=== PATIENT | female | born 1940 | race Caucasian/White ===

== ENCOUNTER → 2021-04-17 10:50 | Outpatient (BNVA) | payer OTHER, MEDICARE, SELFPAY | PROVIDERS: Visit Provider Family Medicine | DX: I10 Essential (primary) hypertension (principal); E03.9 Hypothyroidism, unspecified | CPT/HCPCS: 80053; 80061; 82043; 84443; 85025 ==

== ENCOUNTER 2021-05-22 11:01 | Outpatient (CLI) | payer MEDICARE, SELFPAY ==
--- NOTE | 2021-05-22 11:31 | MM_ITS ---
WS: [id number] BILATERAL SCREENING 3D TOMOSYNTHESIS DIGITAL MAMMOGRAM WITH CAD HISTORY: SCREENING COMPARISON: 09/10/2019 and 05/25/2017 Bilateral CC and MLO views submitted. Computer aided detection analyzed. Breast composition: There are scattered areas of fibroglandular density. No suspicious masses, microc alcifications or architectural distortion. MM/[place] [id number] IMPRESSION: BI-RADS: 1-Negative FOLLOW UP: 1 Year Follow-up
== END 2021-05-22 11:02 | disposition home or self-care (01) ==
LOC: RAD 11:12
PROVIDERS: PCP Family Medicine; Visit Provider Family Medicine
DX: Z12.31 Encounter for screening mammogram for malignant neoplasm of breast (principal)
CPT/HCPCS: 77063; 77067

== ENCOUNTER → 2022-07-01 13:56 | Outpatient (BNVA) | payer MEDICARE, SELFPAY | PROVIDERS: PCP Family Medicine; Visit Provider Dermatology | DX: L57.0 Actinic keratosis (principal); L82.0 Inflamed seborrheic keratosis; L82.1 Other seborrheic keratosis; L72.0 Epidermal cyst; D36.14 Benign neoplasm of peripheral nerves and autonomic nervous system of thorax; L81.4 Other melanin hyperpigmentation; D22.39 Melanocytic nevi of other parts of face | CPT/HCPCS: 17000; 17003; 17110; 99213 ==

== ENCOUNTER → 2023-06-29 12:52 | Outpatient (BNVA) | payer MEDICARE, SELFPAY | PROVIDERS: PCP Family Medicine; Visit Provider Nurse Practitioner Family | DX: D48.5 Neoplasm of uncertain behavior of skin (principal); L82.0 Inflamed seborrheic keratosis; L72.0 Epidermal cyst; L81.4 Other melanin hyperpigmentation; D22.39 Melanocytic nevi of other parts of face; L82.1 Other seborrheic keratosis; Z85.828 Personal history of other malignant neoplasm of skin | CPT/HCPCS: 11102; 17110; 99213 ==

== ENCOUNTER 2024-04-18 09:10 | Outpatient (CLI) | payer MEDICARE, SELFPAY ==
--- NOTE | 2024-04-18 09:15 | USCV_ITS ---
Lisy Pichardo Age: 83 Gender: F : 1940 Exam Date: 04/18/2024 10:23 Ordering Phys: Wolf Bennett DO Technologist: R Exam Location: [facility] [place] Indication: SYNCOPE Risk Factors: Previous Vascular Surgery: Right Brachial BP: / Left Brachial BP: / Right Left Velocity (cm/s) Spectral Plaque Velocity (cm/s) Spectral Plaque Syst/Diast Broadening Syst/Diast Broadening 81.50/ 14.10 Prox CCA 60.00 / 15.20 69.80/ 12.80 Mid CCA 66.60 / 16.30 57.90/ 14.70 Distal CCA 63.00 / 14.90 50.90/ 14.30 Prox ICA 36.50 / 14.10 73.50/ 23.00 Mid ICA 74.50 / 18.80 57.80/ 19.60 Distal ICA 70.30 / 19.60 51.60 ECA 60.60 0.90 ICA/CCA 0.60 Antegrade Vertebral Antegrade 36.50/ 7.10 cm/s 48.70/ 11.90 cm/s Tri Subclavian Tri 96.60 101.6 0 CONCLUSIONS Right ICA stenosis <50%. Mild atheromatous plaque right carotid bulb/ICA. Left ICA stenosis <50%. Mild atheromatous plaque left carotid bulb/ICA. Intimal thickening in the common carotid arteries and internal carotid arteries bilaterally. Normal antegrade Doppler flow noted in the right vertebral artery. Normal antegrade Doppler flow noted in the left vertebral artery. Baldemar Mattson MD (Electronically Signed) Final Date: 18 April 2024 11:39 S
--- NOTE | 2024-04-18 09:15 | USCV_ITS ---
Lisy Pichardo Age: 83 Gender: F : 1940 Exam Date: 04/18/2024 09:42 Ordering Phys: Wolf Bennett DO Technologist: Exam Location: [facility] [place] Indication: cva BP: 140 / 80 HR: 70 Rhythm: Sinus Technical Quality: Adequate MEASUREMENTS (Male / Female) Normal Values 2D ECHO LV Diastolic Diameter PLAX 4.5 cm 4.2 - 5.9 / 3.9 - 5.3 cm IVS Diastolic Thickness 1.6 cm 0.6 - 1.0 / 0.6 - 0.9 cm IVS Systolic Thickness 2.0 cm LVPW Diastolic Thickness 1.2 cm 0.6 - 1.0 / 0.6 - 0.9 cm LVPW Systolic Thickness 2.0 cm LVOT Diameter 2.0 cm LV Ejection Fraction 2D Teich 65.9 % LV Ejection Fraction MOD 4C 61.4 % LV Ejection Fraction MOD 2C 68.3 % LV Ejection Fraction 2C AL 67.3 % LA Diameter 3.4 cm RA Systolic Volume 4C AL 25.2 ml RA Systolic Volume 4C MOD 25.1 ml LA Sys Volume AL 45.4 cm cubed LA Sys Volume Index AL 21.9 cm cubed/m squared Aorta at Sinotubular Diameter 3.2 cm IVC Diameter 1.8 cm M-MODE LA Ao Ratio MM 1.4 AV Cusp Separation MM 1.4 cm DOPPLER AV Peak Velocity 169.0 cm/s LVOT Peak Velocity 122.0 cm/s AV Area Cont Eq vti 2.6 cm squared AV Area Cont Eq pk 2.3 cm squared MV Peak Velocity 137.0 cm/s MV Area PHT 3.0 cm squared Mitral E to A Ratio 0.6 TV Peak Velocity 139.0 cm/s TR Peak Velocity 156.0 cm/s TR Peak Gradient 9.7 mmHg TV Peak E Velocity 61.0 cm/s PV Peak Velocity 104.0 cm/s FINDINGS Left Ventricle Normal left ventricular size, systolic function and wall thickness, with no regional wall motion abnormalities. Left ventricular ejection fraction is estimated at 60 %. Grade I/IV diastolic dysfunction (abnormal relaxation filling pattern), normal to mildly elevated filling pressures. Right Ventricle The right ventricle is normal in size and function. Right Atrium The right atrium is normal in size. Left Atrium The left atrium is normal in size. Mitral Valve Mildly thickened mitral valve. No mitral valve stenosis. Trace mitral valve regurgitation. Aortic Valve Mild aortic valve calcification. No aortic valve stenosis. Trace aortic valve regurgitation. Tricuspid Valve Structurally normal tricuspid valve without significant stenosis or regurgitation. Pulmonary artery systolic pressure is normal. Pulmonic Valve Structurally normal pulmonic valve without significant stenosis. There is no pulmonic regurgitation. Pericardium Normal pericardium without effusion. Aorta Normal ascending aorta dimension. IVC The inferior vena cava appears normal. CONCLUSIONS Normal left ventricular size, systolic function and wall thickness, with no regional wall motion abnormalities. Left ventricular ejection fraction is estimated at 60 %. Grade I/IV diastolic dysfunction (abnormal relaxation filling pattern), normal to mildly elevated filling pressures. No significant valve abnormalities. There is no pericardial effusion. Right atrial pressure is around 5 mm of mercury. Laverne Gonzalez MD (Electronically Signed) Final Date: 08 May 2024 09:17 S
--- NOTE | 2024-04-18 11:00 | MR_ITS ---
WS: [id number] MRI BRAIN WITH AND WITHOUT CONTRAST HISTORY: SYNCOPE COMPARISON: None available. TECHNIQUE: Multiplanar imaging performed through the brain with MultiHance 19 ml's IV. No acute infarcts are seen. Crowder-white matter differentiation is well preserved. Scattered T2 and FLAIR signal hyperintensities in the periventricular and subcortical white matter from small vessel disease. Mild small vessel changes in the claribel. No prior infarct. Mild symmetric cerebral atrophy. Mild cerebellar atrophy. No hippocampal atrophy. No susceptibility artifacts or prior lacunar infarcts. Ventricles and extra-axial spaces are normal. Clivus and pituitary gland are normal. Visualized posterior fossa and brainstem are also normal. No enhancing masses within the brain. There is a focal area of intense enhancement centered near the anterior communicating artery which could potentially be a small aneurysm. Dural venous sinuses are normal. Paranasal sinuses: Complete opacification of the RIGHT frontal sinus. No air- fluid levels within the remaining sinuses. Mastoid air cells: Normal. Calvarium and scalp: Normal. MR/MR head wo/w con [id number] IMPRESSION: 1. No acute infarct or hemorrhage. 2. 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 3. No prior infarcts. 4. Normal hippocampal formations. 5. Suspicious for a tiny aneurysm involving the anterior communicating artery. Recommend follow-up CT angiogram [place].
[2024-04-18] MEDS: gadobenate dimeglumine 20 mL vial 19 ML IV (12:23)
== END 2024-04-18 09:11 | disposition home or self-care (01) ==
PROVIDERS: PCP Family Medicine; Visit Provider Electrodiagnostic Medicine
DX: R55 Syncope and collapse (principal); I67.89 Other cerebrovascular disease; R93.0 Abnormal findings on diagnostic imaging of skull and head, not elsewhere classified; G31.89 Other specified degenerative diseases of nervous system; R93.1 Abnormal findings on diagnostic imaging of heart and coronary circulation; I05.9 Rheumatic mitral valve disease, unspecified; I35.8 Other nonrheumatic aortic valve disorders; I65.23 Occlusion and stenosis of bilateral carotid arteries
CPT/HCPCS: 70553; 93306; 93880

== ENCOUNTER 2024-05-24 07:44 | Outpatient (CLI) | payer MEDICARE, SELFPAY ==
--- NOTE | 2024-05-24 07:53 | CT_ITS ---
WS: [id number] CTA HEAD TECHNIQUE: Contrast enhanced CTA of the head with coronal and sagittal reformatted images and maximum intensity projection (MIP) images. NASCET criteria utilized. CLINICAL INFORMATION: INTRACRANIAL ANEURYSM COMPARISON: MRI 04/18/2024 DLP: 1554.[address] scans at [facility] use at least one of these dose optimization techniques: automated exposure control; mA and/or kV adjustment per patient size (includes targeted exams where dose is matched to clinical indication); or iterative reconstruction. FINDINGS: No evidence of intracranial hemorrhage or mass effect. Ventricular system and basal cisterns are patent. Normal cruz-white differentiation. Vascular calcification. Mild small vessel changes. Mild parenchymal volume loss. Mastoid air cells are well aerated. Opacification of the RIGHT frontal sinus. INTRACRANIAL CTA: Distal vertebral arteries are patent. Basilar artery is patent. 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 Normal vascularity to the ENGRAVING OPERATOR territories bilaterally. Both ICAs are patent at the skull base. Normal vascularity to the CYNTHIA and MCA territories bilaterally. No evidence of proximal flow-limiting stenosis. Mild cavernous carotid calcification. 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 This corresponds to the suspected aneurysm seen on the recent MRI. CT/CT angio head [id number] IMPRESSION: 1. 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 2. 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 3. No proximal flow-limiting intracranial stenosis.
[2024-05-24 08:41] LABS: Blood Urea Nitrogen 18 mg/dL (8-23)
[2024-05-24] MEDS: iohexol 350 mg/mL 500 mL Btl (per mL) IV (08:52)
== END 2024-05-24 07:45 | disposition home or self-care (01) ==
PROVIDERS: PCP Family Medicine; Visit Provider Electrodiagnostic Medicine
DX: I67.1 Cerebral aneurysm, nonruptured (principal); R93.0 Abnormal findings on diagnostic imaging of skull and head, not elsewhere classified; G93.89 Other specified disorders of brain; G31.89 Other specified degenerative diseases of nervous system; J34.89 Other specified disorders of nose and nasal sinuses
CPT/HCPCS: 70496; 82565; 84520

== ENCOUNTER → 2024-06-28 13:00 | Outpatient (BNVA) | payer MEDICARE, SELFPAY | PROVIDERS: PCP Family Medicine; Visit Provider Nurse Practitioner Family | DX: L82.1 Other seborrheic keratosis (principal); D22.39 Melanocytic nevi of other parts of face; L81.4 Other melanin hyperpigmentation; L85.3 Xerosis cutis; Z08 Encounter for follow-up examination after completed treatment for malignant neoplasm; Z85.828 Personal history of other malignant neoplasm of skin; L57.0 Actinic keratosis; X32.XXXA Exposure to sunlight, initial encounter | CPT/HCPCS: 17000; 99213 ==

== ENCOUNTER → 2024-07-17 07:56 | Outpatient (BNVA) | payer MEDICARE, SELFPAY | PROVIDERS: PCP Family Medicine; Visit Provider Student in an Organized Health Care Education/Training Program | DX: M25.562 Pain in left knee (principal); Z96.652 Presence of left artificial knee joint | CPT/HCPCS: 73560; 73565 ==

== ENCOUNTER 2024-07-17 10:22 | Outpatient (CLI) | payer MEDICARE, SELFPAY | END 2024-07-17 10:23 | disposition home or self-care (01) | LOC: SPT 10:28 | PROVIDERS: PCP Family Medicine; Visit Provider Student in an Organized Health Care Education/Training Program | DX: Z46.89 Encounter for fitting and adjustment of other specified devices (principal); M25.562 Pain in left knee | CPT/HCPCS: L1812 ==